=== PATIENT | female | born 1955 | race Caucasian/White ===

== ENCOUNTER 2017-10-13 13:04 | Emergency (ER) | payer OTHER ==
[~2017-10-13] VITALS: Ht 172.7 cm; Wt 71.5 kg
[~2017-10-13 13:04] MED LIST: Z.0.NO CURRENT MEDS
[2017-10-13 13:19] VITALS: BP 169/92; PULSE 90; RESP 18; TEMP 98.6; O2SAT 98
[2017-10-13] MEDS ORDERED: SODIUM CHLORIDE 0.9% FLUSH 10 ML FLUSH IVF PRN (14:00)
[2017-10-13] MEDS ORDERED: PANTOPRAZOLE SOD 40 MG DELAYED RELEASE TAB PO ONE (14:00)
[2017-10-13] MEDS ORDERED: LIDOCAINE VISCOUS 2% SOLN 15 ML UDC PO ONE (14:00)
[2017-10-13] MEDS ORDERED: ALUMINUM/MAGNESIUM/SIMETH 30 ML CUP PO ONE (14:00)
[2017-10-13] MEDS ORDERED: ONDANSETRON HCL 4 MG/2 ML VIAL IVP ONE (14:00)
--- NOTE | 2017-10-13 14:00 | PD ---
HPI Chief Complaint: Chest Pain Time Seen by Provider: 13:55 Travel History International Travel<30 days: No Contact w/Intl Traveler<30days: No Traveled to known affect area: No History of Present Illness HPI Patient presents with complaints of chest tightness since last night when she rolled over. Localized to the left pectoral region. States it has lessened since then. Constant nature. No alleviating or aggravating factors states she has the urge to belch. Denies any shortness of breath. Radiates into the left arm. Nondiabetic. Non-smoker. No cardiac history. No history of hypertension or hyperlipidemia. Positive family history of cardiac disease in her father who had a TX at age 40. Currently on no prescription medications. She did take an aspirin and Gas-X this morning minimal relief. PFSH Past Medical History Medical History: Denies Significant Hx Diminished Hearing: No Tetanus Vaccination: Unknown Influenza Vaccination: No ?: Not Menopausal: Yes Past Surgical History Surgical History: No Previous Surgery Social History Alcohol Use: Yes (daikly) Tobacco Use: No Substance Use: No Allergies-Medications (Allergen,Severity, Reaction): Coded Allergies: No Known Allergies (Verified Adverse Reaction, Unknown, 10/13/17) Reported Meds & Prescriptions Reported Meds & Active Scripts Active Reported No Current Meds (Miscellaneous Medication) Misc Review of Systems General / Constitutional: No: Fever Eyes: No: Visual changes HENT: No: Headaches Cardiovascular: Positive: Chest Pain or Discomfort Respiratory: No: Shortness of Breath Gastrointestinal: No: Abdominal Pain Genitourinary: No: Dysuria Musculoskeletal: No: Pain Skin: No Rash Neurologic: No: Weakness Psychiatric: No: Depression Endocrine: No: Polydipsia Hematologic/Lymphatic: No: Easy Bruising Physical Exam Narrative GENERAL: Well-nourished, well-developed patient. SKIN: Focused skin assessment warm/dry. HEAD: Normocephalic. EYES: No scleral icterus. No injection or drainage. NECK: Supple, trachea midline. No JVD or lymphadenopathy. CARDIOVASCULAR: Regular rate and rhythm without murmurs, gallops, or rubs. RESPIRATORY: Breath sounds equal bilaterally. No accessory muscle use. GASTROINTESTINAL: Abdomen soft, non-tender, nondistended. MUSCULOSKELETAL: No cyanosis, or edema. BACK: Nontender without obvious deformity. No CVA tenderness. Data Data Last Documented VS Vital Signs Date Time Temp Pulse Resp B/P (MAP) Pulse Ox O2 Delivery O2 Flow Rate FiO2 10/13/17 15:05 82 16 156/81 (106) 98 Room Air 10/13/17 13:19 98.6 Orders Orders Electrocardiogram (10/13/17 13:55) Basic Metabolic Panel (Bmp) (10/13/17 13:55) Ckmb (Isoenzyme) Profile (10/13/17 13:55) Complete Blood Count With Diff (10/13/17 13:55) Magnesium (Mg) (10/13/17 13:55) Prothrombin Time / Inr (Pt) (10/13/17 13:55) Act Partial Throm Time (Ptt) (10/13/17 13:55) Troponin I (10/13/17 13:55) Chest, Single Ap (10/13/17 13:55) Ecg Monitoring (10/13/17 13:55) Bilateral Bp Monitoring (10/13/17 13:55) Iv Access Insert/Monitor (10/13/17 13:55) Oximetry (10/13/17 13:55) Oxygen Administration (10/13/17 13:55) Sodium Chloride 0.9% Flush (Ns Flush) (10/13/17 14:00) Ondansetron Inj (Zofran Inj) (10/13/17 14:00) Al-Mag Hy-Si 40-40-4 Mg/Ml Liq (Mag-Al P (10/13/17 14:00) Lidocaine 2% Viscous (Xylocaine 2% Visco (10/13/17 14:00) Pantoprazole (Protonix) (10/13/17 14:00) CKMB (10/13/17 14:05) CKMB% (10/13/17 14:05) Labs Laboratory Tests Test 10/13/17 14:05 White Blood Count 3.3 TH/MM3 Red Blood Count 3.96 MIL/MM3 Hemoglobin 12.8 GM/DL Hematocrit 37.9 % Mean Corpuscular Volume 95.8 FL Mean Corpuscular Hemoglobin 32.3 PG Mean Corpuscular Hemoglobin Concent 33.8 % Red Cell Distribution Width 12.9 % Platelet Count 201 TH/MM3 Mean Platelet Volume 8.3 FL Neutrophils (%) (Auto) 58.1 % Lymphocytes (%) (Auto) 28.2 % Monocytes (%) (Auto) 11.5 % Eosinophils (%) (Auto) 1.8 % Basophils (%) (Auto) 0.4 % Neutrophils # (Auto) 1.9 TH/MM3 Lymphocytes # (Auto) 0.9 TH/MM3 Monocytes # (Auto) 0.4 TH/MM3 Eosinophils # (Auto) 0.1 TH/MM3 Basophils # (Auto) 0.0 TH/MM3 CBC Comment DIFF FINAL Differential Comment Blood Urea Nitrogen 13 MG/DL Creatinine 0.62 MG/DL Random Glucose 99 MG/DL Calcium Level 9.1 MG/DL Magnesium Level 2.1 MG/DL Sodium Level 133 MEQ/L Potassium Level 3.5 MEQ/L Chloride Level 101 MEQ/L Carbon Dioxide Level 25.5 MEQ/L Anion Gap 7 MEQ/L Estimat Glomerular Filtration Rate 98 ML/MIN Total Creatine Kinase 107 U/L Creatine Kinase MB 2.0 NG/ML Troponin I LESS THAN 0.02 NG/ML MDM Medical Decision Making Medical Screen Exam Complete: Yes Emergency Medical Condition: Yes Differential Diagnosis ACS, esophagitis, GERD, costochondritis Narrative Course Assessment plan discussed the patient at bedside. EKG reveals sinus rhythm rate is 61. Hyponatremia noted. Cardiac enzymes negative. Symptoms did improve with GI cocktail. Increased belching noted. I think chest discomfort is likely GI associated. Patient admitted to eating [employer] last night for dinner. Last 72 hours Impressions Chest X-Ray 10/13/17 [id number] Signed Impressions: Service Date/Time: Friday, October 13, 2017 14:00 - CONCLUSION: Mild left lung base atelectasis. No other acute cardiopulmonary disease identified. Parish Hamilton MD Diagnosis Primary Impression: Chest discomfort Patient Instructions: General Instructions Additional Instructions: Encouraged to avoid aggravating factors reflux including but not limited to alcohol tobacco late and large meals spicy meals and weight. Encouraged a bland high-fiber brat diet. Follow-up with PCP. Return to the emergency room with any onset of new symptoms. Med/Other Pt SpecificInfo: Prescription(s) given Scripts Ranitidine (Zantac) 150 Mg Tab 150 MG PO BID for Reduce Stomach Acid, #30 TAB 0 Refills Prov: Lorenzo Montesinos MD 10/13/17 Pantoprazole (Protonix) 40 Mg Tab 40 MG PO BID for Reflux, #30 TAB 0 Refills Prov: Lorenzo Montesinos MD 10/13/17 Disposition: 01 DISCHARGE HOME Condition: Good Lorenzo Montesinos MD October 13, 2017 14:00
[2017-10-13 14:08] VITALS: RESP 16; O2SAT 98
[2017-10-13 14:14] LABS: AUTOMATED NEUTROPHIL # 1.9 TH/MM3 (1.8-7.7); BASOPHIL % 0.4 % (0.0-2.0); EOSINOPHIL # 0.1 TH/MM3 (0-0.4); EOSINOPHIL % 1.8 % (0.0-4.0); HEMATOCRIT 37.9 % (35.0-46.0); HEMOGLOBIN 12.8 GM/DL (11.6-15.3); LYMPH % 28.2 % (9.0-44.0); LYMPHOCYTE # 0.9 TH/MM3 (1.0-4.8); MEAN CELL VOLUME 95.8 FL (80.0-100.0); MEAN CORPUSCULAR HEMOGLOBIN 32.3 PG (27.0-34.0); MEAN CORPUSCULAR HGB CONC 33.8 % (32.0-36.0); MEAN PLATELET VOLUME 8.3 FL (7.0-11.0); MONO % 11.5 % (0.0-8.0); MONOCYTE # 0.4 TH/MM3 (0-0.9); NEUT % 58.1 % (16.0-70.0); PLATELET COUNT 201 TH/MM3 (150-450); RED BLOOD COUNT 3.96 MIL/MM3 (4.00-5.30); RED CELL DISTRIBUTION WIDTH 12.9 % (11.6-17.2); WHITE BLOOD COUNT 3.3 TH/MM3 (4.0-11.0)
[2017-10-13 14:18] VITALS: BP 167/82; PULSE 58; RESP 16; O2SAT 97
[2017-10-13 14:19] VITALS: BP_SYST 164; BP_SYST 167; BP_DIAS 80; BP_DIAS 82; PULSE 58
--- NOTE | 2017-10-13 14:23 | RADRPT ---
EXAM DATE/TIME: 10/13/2017 14:00 [facility] COMPARISON: No previous studies available for comparison. INDICATIONS : Chest tightness, left hand tingling MEDICAL HISTORY : None. SURGICAL HISTORY : None. ENCOUNTER: Initial ACUITY: 1 day PAIN SCORE: 5/10 LOCATION: Bilateral chest FINDINGS: Single AP view the chest. Mild patchy left lung base opacity. Lungs otherwise clear. Diffuse bone dem ineralization. Right convex thoracic scoliosis. Cardiomediastinal silhouette within normal limits. CONCLUSION: Mild left lung base atelectasis. No other acute cardiopulmonary disease identified. Parish Hamilton MD on October 13, 2017 at 14:20 Board Certified Radiologist. This report was verified electronically.
[2017-10-13 14:36] LABS: CHLORIDE 101 MEQ/L (98-107); SODIUM (NA) 133 MEQ/L (136-145)
[2017-10-13 14:39] LABS: BICARBONATE 25.5 MEQ/L (21.0-32.0); BLOOD UREA NITROGEN 13 MG/DL (7-18); CALCIUM 9.1 MG/DL (8.5-10.1); GLUCOSE,RANDOM 99 MG/DL (74-106); MAGNESIUM 2.1 MG/DL (1.5-2.5)
[2017-10-13 14:43] LABS: CREATININE 0.62 MG/DL (0.50-1.00); GLOMERULAR FILTRATION RATE 98 ML/MIN (>89)
[2017-10-13 14:47] LABS: TROPONIN I LESS THAN 0.02 NG/ML (0.02-0.05)
[2017-10-13 15:05] VITALS: BP 156/81; PULSE 82; RESP 16; O2SAT 98
[2017-10-13] MEDS ORDERED: PROT40TA PO (15:23)
[2017-10-13] MEDS ORDERED: ZANT150T2 PO (15:23)
[2017-10-13 16:26] LABS: PROTHROMBIN TIME - PATIENT 10.1 SEC (9.8-11.6)
--- NOTE | 2017-10-14 12:20 | EKG ---
Date Performed: 10/13/2017 Time Performed: 13:42:17 PTAGE: 62 years EKG: Sinus rhythm WITH SINUS ARRHYTHMIA NORMAL ECG PREVIOUS TRACING : 04/08/2009 19.14 Since the previous tracing, no significant change noted DOCTOR: Jovanny Headley Interpretating Date/Time 10/14/2017 12:18:44
== END 2017-10-13 15:57 | disposition home or self-care (01) ==
LOC: PHED 13:04
DX: R07.89 Other chest pain (principal); E87.1 Hypo-osmolality and hyponatremia
CPT/HCPCS: 71045; 80048; 82550; 82552; 83735; 84484; 85025; 85610; 85730; 93005; 96374; 99285; J2405